=== PATIENT | male | born 1980 | race Caucasian/White ===

== ENCOUNTER 2018-07-12 20:23 | Emergency (ER) | payer SELFPAY ==
[2018-07-12] MEDS ORDERED: PROPARACAINE HCL OPTH 15ML BTL OPTH ONE (20:28)
--- NOTE | 2018-07-12 20:41 | Emergency Department Record ---
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 he was able to get part of it out chief complaint: Eye pain, Eye redness, Foreign body Onset/Timin -: Days(s) Onset Description: Gradual Location: Right eye If Injury: Occurred while hammering/grinding Eye Symptoms: Blurry vision, Foreign body sensation, Itching, Pain, Redness Severity: Mild Severity scale (1-10): 4 If Pain, Quality: Aching Consistency: Constant Associated Symptoms: None Treatments Prior to Arrival: None - Related Data Visual acuity (L) = 20/: 20 Visual acuity (R) = 20/: 40 With correction: No Patient Tetanus UTD (within 5 yrs): Yes Home Medications Medication Instructions Recorded Confirmed Last Taken No Home Med [NO HOME MEDS] 07/12/18 07/12/18 Unknown Allergies Allergy/AdvReac Type Severity Reaction Status Date / Time No Known Drug Allergies Allergy Verified 07/12/18 20:31 Travel Screening - Travel/Exposure Within Last 30 Days Have you traveled within the last 30 days?: No - Travel Symptoms Symptom Screening: None Review of Systems Reviewed: No additional complaints except as noted below Constitutional: Reports: As per HPI. Denies: Chills, Fever, Malaise, Night sweats, Weakness, Weight change Eyes: Reports: As per HPI. Denies: Eye discharge, Eye pain, Photophobia, Vision change ENT: Reports: As per HPI. Denies: Congestion, Dental pain, Ear pain, Epistaxis , Hearing loss, Throat pain Respiratory: Reports: As per HPI. Denies: Cough, Dyspnea, Hemoptysis, Stridor, Wheezes Cardiovascular: Reports: As per HPI. Denies: Arrhythmia, Chest pain, Dyspnea on exertion, Edema, Murmurs, Orthopnea, Palpitations, Paroxysmal nocturnal dyspnea, Rheumatic Fever, Syncope Endocrine: Reports: As per HPI. Denies: Fatigue, Heat or cold intolerance, Polydipsia, Polyuria Gastrointestinal: Reports: As per HPI. Denies: Abdominal pain, Constipation, Diarrhea, Hematemesis, Hematochezia, Melena, Nausea, Vomiting Genitourinary: Reports: As per HPI. Denies: Dysuria, Frequency, Hematuria, Incontinence, Retention, Testicular pain, Testicular mass, Urgency Musculoskeletal: Reports: As per HPI. Denies: Arthralgia, Back pain, Gout, Joint swelling, Myalgia, Neck pain Skin: Reports: As per HPI. Denies: Bruising, Change in color, Change in hair/ nails, Lesions, Pruritus, Rash Neurological: Reports: As per HPI. Denies: Abnormal gait, Confusion, Headache, Numbness, Paresthesias, Seizure, Tingling, Tremors, Vertigo, Weakness Psychiatric: Reports: As per HPI. Denies: Anxiety, Auditory hallucinations, Depression, Homicidal thoughts, Suicidal thoughts, Visual hallucinations Hematological/Lymphatic: Reports: As per HPI. Denies: Anemia, Blood Clots, Easy bleeding, Easy bruising, Swollen glands Past Medical History - SOCIAL HISTORY Smoking Status: Current every day smoker Alcohol Use: None Drug Use: None - RESPIRATORY Hx Respiratory Disorders: No - CARDIOVASCULAR Hx Cardio Disorders: No - NEURO Hx Neuro Disorders: No - GI Hx GI Disorders: No - Hx Genitourinary Disorders: No - ENDOCRINE Hx Endocrine Disorders: No - MUSCULOSKELETAL Hx Musculoskeletal Disorders: No - PSYCH Hx Psych Problems: No - HEMATOLOGY/ONCOLOGY Hx Hematology/Oncology Disorders: No Family Medical History Any Significant Family History?: No Physical Exam - General General Appearance: Alert, Oriented x3, Cooperative, Mild distress - Head Head exam: Normal inspection - Eye Eye exam: Normal appearance, PERRL, Conjunctival injection, EOMI Pupils: Normal accommodation With correction: No Image of Eyes: 1 - fb. removed w needle. tiny rust ring remains. corneal abrasion remains - ENT ENT exam: Normal exam, Mucous membranes moist, Normal external ear exam, Normal orophraynx Ear exam: Normal external inspection. negative: External canal tenderness Nasal Exam: Normal inspection. negative: Discharge, Sinus tenderness Mouth exam: Normal external inspection, Tongue normal Teeth exam: Normal inspection. negative: Dental caries Throat exam: Normal inspection. negative: Tonsillar erythema, Tonsillar exudate - Neck Neck exam: Normal inspection, Full ROM. negative: Tenderness - Respiratory Respiratory exam: Normal lung sounds bilaterally. negative: Respiratory distress - Cardiovascular Cardiovascular Exam: Regular rate, Normal rhythm, Normal heart sounds - GI/Abdominal GI/Abdominal exam: Soft, Normal bowel sounds. negative: Tenderness - Rectal Rectal exam: Deferred - exam: Deferred - Extremities Extremities exam: Normal inspection, Full ROM, Normal capillary refill. negative: Tenderness - Back Back exam: Reports: Normal inspection, Full ROM. Denies: Muscle spasm, Rash noted, Tenderness - Neurological Neurological exam: Alert, CN II-XII intact, Normal gait, Oriented X3 - Psychiatric Psychiatric exam: Normal affect, Normal mood - Skin Skin exam: Dry, Intact, Normal color, Warm Course Vital Signs 07/12/18 20:29 Temperature 98.1 F Pulse Rate [ 68 Pulse Ox Probe] Respiratory 20 Rate Blood Pressure 125/99 [Left Arm] Pulse Ox 99 - Reevaluation(s) Reevaluation #1: 07/12/18 21:01 eye anesth. fb removed w needle, residual tiny rust ring and corneal abrasion Disposition Disposition: Discharge Clinical Impression: Foreign body, eye Qualifiers: Encounter type: initial encounter Laterality: right Qualified Code(s): T15.91XA - Foreign body on external eye, part unspecified, right eye, initial encounter Corneal abrasion Qualifiers: Encounter type: initial encounter Laterality: right Qualified Code(s): S05.01XA - Injury of conjunctiva and corneal abrasion without foreign body, right eye, initial encounter Disposition: Home, Self-Care Condition: (1) Good Instructions: Eye Foreign Body (ED) Additional Instructions: follow up with opthamologist tomorrow. apply drops 4 times a day for 5 days. return sooner if worse Forms: Patient Portal Access Quality - Quality Measures Quality Measures: N/A - Blood Pressure Screening Does Patient Have Any of the Following: No Blood Pressure Classification: Hypertensive Reading Systolic Measurement: 125 Diastolic Measurement: 99 Screening for High Blood Pressure: < Pre-Hypertensive BP, F/U Documented > [ G8950] Pre-Hypertensive Follow-up Interventions: Follow-up with rescreen every year.
[2018-07-12] MEDS ORDERED: GENTAMICIN SULFATE 0.3% OPTH 5 ML BTL OPTH ONE (20:58)
== END 2018-07-12 21:29 | disposition home or self-care (01) ==
LOC: ER 20:23
DX: T15.01XA Foreign body in cornea, right eye, initial encounter (principal); T14.90XA Injury, unspecified, initial encounter; T54.91XA Toxic effect of unspecified corrosive substance, accidental (unintentional), initial encounter; Y92.9 Unspecified place or not applicable; F17.210 Nicotine dependence, cigarettes, uncomplicated
CPT/HCPCS: 99283

== ENCOUNTER 2018-08-13 10:09 | Emergency (ER) | payer SELFPAY ==
[2018-08-13] MEDS ORDERED: PROPARACAINE HCL OPTH 15ML BTL OPTH ONE ×2 (10:22→10:24)
--- NOTE | 2018-08-13 10:35 | Emergency Department Record ---
History of Present Illness - General Chief complaint: Eye Problem Stated complaint: FOREIGN OBJECT LFT EYE Time Seen by Provider: 08/13/18 10:22 Source: Patient Mode of Arrival: Ambulatory Limitations: No limitations - History of Present Illness Initial comments: 37 yo male presents with a concern about FB in the left eye. He thinks it may have occurred on . His left eye became irritated on Wednesday. He welds using protective glasses. His family member noted a small spot just below the pupil. No glasses or contacts. MD chief complaint: Eye pain, Eye redness, Foreign body Onset/Timin -: Days(s) Onset Description: Sudden, Unknown Location: Left eye Place: Work If Injury: Other Eye Symptoms: Blurry vision Severity: Moderate Severity scale (1-10): 8 If Pain, Quality: Sharp Consistency: Constant Context: Other Associated Symptoms: None Treatments Prior to Arrival: OTC eye drops - Related Data Hx Tetanus Toxoid Vaccination: Yes Year of Tetanus Vaccination: 2012 Allergies Allergy/AdvReac Type Severity Reaction Status Date / Time No Known Drug Allergies Allergy Verified 07/12/18 20:31 Travel Screening - Travel/Exposure Within Last 30 Days Have you traveled within the last 30 days?: No Review of Systems Constitutional: Denies: Chills, Fever Eyes: Reports: Eye pain, Photophobia, Vision change. Denies: Eye discharge ENT: Denies: Congestion, Throat pain Respiratory: Denies: Cough Cardiovascular: Denies: Chest pain Endocrine: Denies: Fatigue Gastrointestinal: Denies: Abdominal pain, Diarrhea, Nausea, Vomiting Genitourinary: Denies: Dysuria Musculoskeletal: Denies: Myalgia Skin: Denies: Bruising, Change in color, Rash Neurological: Denies: Headache Psychiatric: Denies: Anxiety Hematological/Lymphatic: Denies: Easy bleeding, Easy bruising Past Medical History - SOCIAL HISTORY Smoking Status: Current every day smoker Alcohol Use: None Drug Use: None - RESPIRATORY Hx Respiratory Disorders: No - CARDIOVASCULAR Hx Cardio Disorders: No - NEURO Hx Neuro Disorders: No - GI Hx GI Disorders: No - Hx Genitourinary Disorders: No - ENDOCRINE Hx Endocrine Disorders: No - MUSCULOSKELETAL Hx Musculoskeletal Disorders: No - PSYCH Hx Psych Problems: No - HEMATOLOGY/ONCOLOGY Hx Hematology/Oncology Disorders: No Family Medical History Any Significant Family History?: No Physical Exam - General General Appearance: Alert, Oriented x3, Cooperative, No acute distress Limitations: No limitations - Head Head exam: Atraumatic, Normal inspection - Eye Eye exam: PERRL, EOMI. negative: Normal appearance, Conjunctival injection, Periorbital swelling, Periorbital tenderness Pupils: Normal accommodation. negative: Irregular, Unequal Image of Eyes: 1 - metallic FB with rust - ENT ENT exam: Normal exam Ear exam: Normal external inspection Nasal Exam: Normal inspection Mouth exam: Normal external inspection - Neck Neck exam: Normal inspection - Rectal Rectal exam: Deferred - exam: Deferred - Neurological Neurological exam: Alert, Oriented X3 - Psychiatric Psychiatric exam: negative: Agitated, Anxious - Skin Skin exam: negative: Cyanosis Type of lesion: negative: abrasion, Abscess Course Vital Signs 08/13/18 10:13 Temperature 98.0 F Pulse Rate 70 Respiratory 20 Rate Blood Pressure 130/91 Pulse Ox 100 - Reevaluation(s) Reevaluation #1: 08/13/18 10:40 Slit Lamp examination performed Alcaine placed 2 drops Fluorescent Stain applied A single central metalic/rust FB noted Gentle plastic curette use to dislodge a small fragment but most remained adherent with rust The case was discussed with Dr Palomares He will see the patient at 12:30 at his office in [place] for evaluation The patient assured me he will be on time to his office today for examination Disposition Disposition: Discharge Clinical Impression: Corneal foreign body with residual material Disposition: Home, Self-Care Condition: (1) Good Instructions: Eye Foreign Body (ED) Additional Instructions: Without fail see Dr Palomares in his office at 12:30 today His address is [address] [place] [address] Do not miss this appointment Referrals: KAMI PALOMARES [MEDICAL DOCTOR] - Forms: Patient Portal Access Time of Disposition: 10:41 Quality - Quality Measures Quality Measures: N/A - Blood Pressure Screening Does Patient Have Any of the Following: No Blood Pressure Classification: Hypertensive Reading Systolic Measurement: 130 Diastolic Measurement: 91 Screening for High Blood Pressure: < Pre-Hypertensive BP, F/U Documented > [ G8950] Pre-Hypertensive Follow-up Interventions: Referral to alternative/primary care provider.
== END 2018-08-13 11:00 | disposition home or self-care (01) ==
LOC: ER 10:09
DX: T15.02XA Foreign body in cornea, left eye, initial encounter (principal); X58.XXXA Exposure to other specified factors, initial encounter; F17.210 Nicotine dependence, cigarettes, uncomplicated; Y99.0 Civilian activity done for income or pay
CPT/HCPCS: 65222; 99283

== ENCOUNTER 2018-08-17 02:33 | Emergency (ER) | payer SELFPAY ==
--- NOTE | 2018-08-17 02:55 | Emergency Department Record ---
History of Present Illness - General Chief complaint: Eye Problem Stated complaint: FB EYE Time Seen by Provider: 08/17/18 02:46 Source: Patient Mode of Arrival: Ambulatory Limitations: No limitations - History of Present Illness Initial comments: 37 yo male presents to ED for evaluation of a FB sensation to the left eye. Patient reports that he did get some metal in the left eye that was removed by a sita performed by Dr. Zavala 4 days ago. Patient reports that he woke up this morning with sharp pain to the left lateral lower eye region. Patient denies new injury, has been taking his antibiotic drops as directed. Patient reports associated photophobia symptoms, denies drainage from the eye. MD chief complaint: Eye pain, Eye redness Onset/Timin -: Minutes(s) Onset Description: Awoke with symptoms Location: Left eye Place: Home Eye Symptoms: Burning, Photophobia Severity scale (1-10): 10 If Pain, Quality: Burning, Sharp, Stabbing Consistency: Constant Context: Recent eye procedure Associated Symptoms: None Treatments Prior to Arrival: Other - Related Data Hx Tetanus Toxoid Vaccination: Yes Year of Tetanus Vaccination: 2012 Patient Tetanus UTD (within 5 yrs): Yes Allergies Allergy/AdvReac Type Severity Reaction Status Date / Time No Known Drug Allergies Allergy Verified 07/12/18 20:31 Travel Screening - Travel/Exposure Within Last 30 Days Have you traveled within the last 30 days?: No - Travel Symptoms Symptom Screening: None Review of Systems Constitutional: Denies: Chills, Fever, Malaise, Night sweats Eyes: Reports: Eye pain, Photophobia. Denies: Eye discharge ENT: Denies: Congestion, Ear pain, Epistaxis Respiratory: Denies: Cough, Dyspnea Cardiovascular: Denies: Chest pain, Dyspnea on exertion Endocrine: Denies: Fatigue, Heat or cold intolerance Gastrointestinal: Denies: Abdominal pain, Nausea, Vomiting Genitourinary: Denies: Incontinence, Retention Musculoskeletal: Denies: Arthralgia, Back pain, Gout, Joint swelling Skin: Denies: Bruising, Change in color Neurological: Denies: Abnormal gait, Confusion, Headache, Seizure Psychiatric: Denies: Anxiety Hematological/Lymphatic: Denies: Anemia, Blood Clots Past Medical History - SOCIAL HISTORY Smoking Status: Current every day smoker - RESPIRATORY Hx Respiratory Disorders: No - CARDIOVASCULAR Hx Cardio Disorders: No - NEURO Hx Neuro Disorders: No - GI Hx GI Disorders: No - Hx Genitourinary Disorders: No - ENDOCRINE Hx Endocrine Disorders: No - MUSCULOSKELETAL Hx Musculoskeletal Disorders: No - PSYCH Hx Psych Problems: No - HEMATOLOGY/ONCOLOGY Hx Hematology/Oncology Disorders: No Family Medical History Any Significant Family History?: Yes Hx Cancer: Grandparents Physical Exam - General General Appearance: Alert, Oriented x3, Cooperative, Mild distress Limitations: No limitations - Head Head exam: Atraumatic, Normocephalic, Normal inspection Head exam detail: negative: Abrasion, Contusion, Lamb's sign, General tenderness, Hematoma, Laceration - Eye Eye exam: Conjunctival injection (Left eye. Small pinpoint abrasion at the 5 o' clock position of the left cornea, negative Seidels, no FB present of upper/ lower lid eversion.). negative: Periorbital swelling, Periorbital tenderness, Scleral icterus - ENT Ear exam: negative: Auricular hematoma, Auricular trauma Nasal Exam: negative: Active bleeding, Discharge, Dried blood, Foreign body Mouth exam: negative: Drooling, Laceration, Tongue elevation - Neck Neck exam: Normal inspection. negative: Meningismus, Tenderness - Respiratory Respiratory exam: Normal lung sounds bilaterally. negative: Rales, Respiratory distress, Rhonchi, Stridor - Cardiovascular Cardiovascular Exam: Regular rate, Normal rhythm, Normal heart sounds - GI/Abdominal GI/Abdominal exam: Soft. negative: Rebound, Rigid, Tenderness - Rectal Rectal exam: Deferred - exam: Deferred - Extremities Extremities exam: Normal inspection. negative: Calf tenderness, Pedal edema, Tenderness - Back Back exam: Denies: CVA tenderness (R), CVA tenderness (L) - Neurological Neurological exam: Alert, Normal gait, Oriented X3 - Psychiatric Psychiatric exam: Normal affect, Normal mood - Skin Skin exam: Normal color. negative: Abrasion Type of lesion: negative: abrasion Course Vital Signs 08/17/18 02:40 Temperature 97.6 F Pulse Rate [ 70 Pulse Ox Probe] Respiratory 20 Rate Blood Pressure 123/75 [Left Arm] Pulse Ox 100 - Reevaluation(s) Reevaluation #1: 08/17/18 03:00 Following alcaine drops, small pinpoint abrasion to the 5 o'clock position. No FB present No FB present on upper/lower lid eversion Negative Stephanie's EOMI NO cells/flare present on examination to suggest traumatic iritis. VA 20/40 right 20/50 left Recommended patient call Dr. Zavala for an appointment this morning. Disposition Disposition: Discharge Clinical Impression: Abrasion, corneal Qualifiers: Encounter type: subsequent encounter Laterality: left Qualified Code(s): S05.02XD - Injury of conjunctiva and corneal abrasion without foreign body, left eye, subsequent encounter Disposition: Home, Self-Care Condition: (2) Stable Instructions: Corneal Abrasion (ED) Additional Instructions: Return to ED if your symptoms worsen or if you have any concerns. Continue antibiotic eye drops as directed. Follow-up with Dr. Zavala later this morning. Time of Disposition: 03:02 Quality - Quality Measures Quality Measures: N/A - Blood Pressure Screening Does Patient Have Any of the Following: No Blood Pressure Classification: Pre-Hypertensive BP Reading Systolic Measurement: 123 Diastolic Measurement: 75 Screening for High Blood Pressure: < Pre-Hypertensive BP, F/U Documented > [ G8950] Pre-Hypertensive Follow-up Interventions: Referral to alternative/primary care provider.
[2018-08-17] MEDS: PROPARACAINE HCL OPTH 15ML BTL OPTH ONE (03:00)
== END 2018-08-17 03:13 | disposition home or self-care (01) ==
LOC: ER 02:33
DX: S05.02XA Injury of conjunctiva and corneal abrasion without foreign body, left eye, initial encounter (principal); H53.149 Visual discomfort, unspecified; X58.XXXA Exposure to other specified factors, initial encounter; F17.210 Nicotine dependence, cigarettes, uncomplicated
CPT/HCPCS: 99282

== ENCOUNTER 2019-02-10 17:25 | Emergency (ER) | payer SELFPAY ==
[2019-02-10] MEDS ORDERED: 0.9 % SODIUM CHLORIDE 1,000 ML BAG IV ONE (17:41)
--- NOTE | 2019-02-10 17:45 | Emergency Department Record ---
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 MD Complaint: Cough Onset/Timin -: Week(s) Severity: Moderate Severity scale (1-10): 5 Consistency: Constant - Related Data Previous Rx's Medication Instructions Recorded Azithromycin 250 mg PO DAILY #6 tablet 02/10/19 Guaifenesin/Dextromethorphan 10 ml PO Q4HR #300 liquid 02/10/19 [Robitussin Cough-Chest Dm Liq] Allergies Allergy/AdvReac Type Severity Reaction Status Date / Time No Known Drug Allergies Allergy Verified 07/12/18 20:31 Travel Screening - Travel/Exposure Within Last 30 Days Have you traveled within the last 30 days?: No Review of Systems Reviewed: No additional complaints except as noted below Constitutional: Reports: As per HPI, Chills, Fever, Malaise. Denies: Night sweats, Weakness, Weight change Eyes: Reports: As per HPI. Denies: Eye discharge, Eye pain, Photophobia, Vision change ENT: Reports: As per HPI, Congestion, Throat pain. Denies: Dental pain, Ear pain, Epistaxis, Hearing loss Respiratory: Reports: As per HPI, Cough. Denies: Dyspnea, Hemoptysis, Stridor, Wheezes Cardiovascular: Reports: As per HPI. Denies: Arrhythmia, Chest pain, Dyspnea on exertion, Edema, Murmurs, Orthopnea, Palpitations, Paroxysmal nocturnal dyspnea, Rheumatic Fever, Syncope Endocrine: Reports: As per HPI. Denies: Fatigue, Heat or cold intolerance, Polydipsia, Polyuria Gastrointestinal: Reports: As per HPI. Denies: Abdominal pain, Constipation, Diarrhea, Hematemesis, Hematochezia, Melena, Nausea, Vomiting Genitourinary: Reports: As per HPI. Denies: Dysuria, Frequency, Hematuria, Incontinence, Retention, Testicular pain, Testicular mass, Urgency Musculoskeletal: Reports: As per HPI. Denies: Arthralgia, Back pain, Gout, Joint swelling, Myalgia, Neck pain Skin: Reports: As per HPI. Denies: Bruising, Change in color, Change in hair/ nails, Lesions, Pruritus, Rash Neurological: Reports: As per HPI. Denies: Abnormal gait, Confusion, Headache, Numbness, Paresthesias, Seizure, Tingling, Tremors, Vertigo, Weakness Psychiatric: Reports: As per HPI. Denies: Anxiety, Auditory hallucinations, Depression, Homicidal thoughts, Suicidal thoughts, Visual hallucinations Hematological/Lymphatic: Reports: As per HPI. Denies: Anemia, Blood Clots, Easy bleeding, Easy bruising, Swollen glands Past Medical History - SOCIAL HISTORY Smoking Status: Current every day smoker - RESPIRATORY Hx Respiratory Disorders: No - CARDIOVASCULAR Hx Cardio Disorders: No - NEURO Hx Neuro Disorders: No - GI Hx GI Disorders: No - Hx Genitourinary Disorders: No - ENDOCRINE Hx Endocrine Disorders: No - MUSCULOSKELETAL Hx Musculoskeletal Disorders: No - PSYCH Hx Psych Problems: No - HEMATOLOGY/ONCOLOGY Hx Hematology/Oncology Disorders: No Family Medical History Any Significant Family History?: Yes Hx Cancer: Grandparents Physical Exam - General General Appearance: Alert, Oriented x3, Cooperative, No acute distress - Head Head exam: Normal inspection - Eye Eye exam: Normal appearance, PERRL Pupils: Normal accommodation - ENT ENT exam: Normal exam, Mucous membranes moist, Normal external ear exam, Normal orophraynx, TM's normal bilaterally Ear exam: Normal external inspection. negative: External canal tenderness Nasal Exam: Normal inspection. negative: Discharge, Sinus tenderness Mouth exam: Normal external inspection, Tongue normal Teeth exam: Normal inspection. negative: Dental caries Throat exam: Normal inspection. negative: Tonsillar erythema, Tonsillar exudate - Neck Neck exam: Normal inspection, Full ROM. negative: Tenderness - Respiratory Respiratory exam: Normal lung sounds bilaterally, Wheezes. negative: Respiratory distress - Cardiovascular Cardiovascular Exam: Regular rate, Normal rhythm, Normal heart sounds - GI/Abdominal GI/Abdominal exam: Soft, Normal bowel sounds. negative: Tenderness - Rectal Rectal exam: Deferred - exam: Deferred - Extremities Extremities exam: Normal inspection, Full ROM, Normal capillary refill. negative: Tenderness - Back Back exam: Reports: Normal inspection, Full ROM. Denies: Muscle spasm, Rash noted, Tenderness - Neurological Neurological exam: Alert, Normal gait, Oriented X3, Reflexes normal - Psychiatric Psychiatric exam: Normal affect, Normal mood - Skin Skin exam: Dry, Intact, Normal color, Warm Course Vital Signs 02/10/19 17:29 Temperature 98.6 F Pulse Rate 92 H Respiratory 18 Rate Blood Pressure 117/76 Pulse Ox 99 - Reevaluation(s) Reevaluation #1: 04/patient said he didn't want a chest xray because of cost10/19 17:45 Medical Decision Making - Lab Data Result diagrams: 02/10/19 17:45 02/10/19 17:45 Disposition Clinical Impression: Bronchitis Disposition: Home, Self-Care Condition: (1) Good Instructions: Acute Bronchitis (ED) Additional Instructions: fluids and rest Prescriptions: Guaifenesin/Dextromethorphan [Robitussin Cough-Chest Dm Liq] 10 ml PO Q4HR #300 liquid Azithromycin 250 mg PO DAILY #6 tablet Forms: Patient Portal Access Time of Disposition: 18:16 Quality - Quality Measures Quality Measures: N/A - Blood Pressure Screening Does Patient Have Any of the Following: No Blood Pressure Classification: Normal BP Reading Systolic Measurement: 117 Diastolic Measurement: 76 Screening for High Blood Pressure: < Normal BP, F/U Not Required > [G8783]
[2019-02-10 18:04] LABS: BASO % 0.4 % (0-6); EOS % 1.8 % (0-6); GRAN % 76.1 % (47-80); HEMATOCRIT 46.8 % (42.0-52.0); HEMOGLOBIN 15.8 gm/dl (14.0-18.0); LYMPH % 13.7 % (16-45); MEAN CELL VOLUME 86.2 fl (81-97); MEAN CORPUSCULAR HEMOGLOBIN 29.1 pg (27-33); MEAN CORPUSCULAR HGB CONC 33.8 g/dl (32-36); MEAN PLATELET VOLUME 11.3 fl (7.4-10.4); PLATELET COUNT 208 K/uL (130-400); RED BLOOD COUNT 5.43 M/uL (4.40-5.70); RED CELL DISTRIBUTION WIDTH 13.8 % (11.5-14.5); WHITE BLOOD COUNT W/O DIFF 9.3 K/uL (4.2-12.2)
[2019-02-10] MEDS ORDERED: AZITHROMYCIN 500 MG TABLET PO ONE (18:11)
[2019-02-10 18:15] LABS: STREP A SCREEN NEGATIVE (NEGATIVE)
[2019-02-10 18:17] LABS: BLOOD UREA NITROGEN 15 mg/dL (6-20)
[2019-02-10 18:18] LABS: EST GLOMERULAR FILTRATION RATE > 60 mL/min
[2019-02-10 18:20] LABS: GLUCOSE,RANDOM 88 mg/dL (74-109)
[2019-02-10 18:21] LABS: INFLUENZA A NEGATIVE (NEGATIVE); INFLUENZA B NEGATIVE (NEGATIVE)
== END 2019-02-10 18:41 | disposition home or self-care (01) ==
LOC: ER 17:25
DX: J20.9 Acute bronchitis, unspecified (principal); R11.10 Vomiting, unspecified; R19.7 Diarrhea, unspecified; F17.210 Nicotine dependence, cigarettes, uncomplicated
CPT/HCPCS: 80048; 85025; 87400; 87880; 96360; 99284

== ENCOUNTER 2019-02-22 02:45 | Emergency (ER) | payer SELFPAY ==
[2019-02-22] MEDS ORDERED: ASPIRIN 81 MG CHEWABLE TABLET PO ONE (03:00)
[2019-02-22] MEDS ORDERED: MAGNESIUM HYDROXIDE/AL HYDROX 30 ML, LIDOCAINE VISC 2% 15ML 15 ML PO ONE ×2 (03:03)
[2019-02-22 03:19] LABS: BASO % 0.5 % (0-6); EOS % 2.1 % (0-6); GRAN % 68.1 % (47-80); HEMATOCRIT 43.9 % (42.0-52.0); HEMOGLOBIN 14.7 gm/dl (14.0-18.0); MEAN CELL VOLUME 85.9 fl (81-97); MEAN CORPUSCULAR HEMOGLOBIN 28.8 pg (27-33); MEAN CORPUSCULAR HGB CONC 33.5 g/dl (32-36); MEAN PLATELET VOLUME 11.2 fl (7.4-10.4); MONO % 8.3 % (0-9); PLATELET COUNT 234 K/uL (130-400); RED BLOOD COUNT 5.11 M/uL (4.40-5.70); RED CELL DISTRIBUTION WIDTH 13.8 % (11.5-14.5); WHITE BLOOD COUNT W/O DIFF 14.5 K/uL (4.2-12.2)
--- NOTE | 2019-02-22 03:26 | Emergency Department Record ---
History of Present Illness - General Chief Complaint: Chest Pain Stated Complaint: CHEST PAIN Time Seen by Provider: 02/22/19 02:55 Source: Patient Mode of Arrival: Ambulatory Limitations: No limitations - History of Present Illness Initial Comments: pt c/o sharp stabbing cp and points to his epigastrum. he has a recent hx of bronchitis. he has no other symptoms except a clear cough. no fam hx of cad Onset/Timin -: Hour(s) Onset: During rest Pain Location: Right chest, Epigastric Severity scale (1-10): 8 Quality: Sharp Consistency: Constant, Getting worse Improves With: Nothing Worsens With: Palpation Treatments Prior to Arrival: None - Related Data Allergies Allergy/AdvReac Type Severity Reaction Status Date / Time No Known Drug Allergies Allergy Verified 07/12/18 20:31 Travel Screening - Travel/Exposure Within Last 30 Days Have you traveled within the last 30 days?: No Review of Systems Reviewed: No additional complaints except as noted below Constitutional: Reports: As per HPI. Denies: Chills, Fever, Malaise, Night sweats, Weakness, Weight change Eyes: Reports: As per HPI. Denies: Eye discharge, Eye pain, Photophobia, Vision change ENT: Reports: As per HPI. Denies: Congestion, Dental pain, Ear pain, Epistaxis , Hearing loss, Throat pain Respiratory: Reports: As per HPI. Denies: Cough, Dyspnea, Hemoptysis, Stridor, Wheezes Cardiovascular: Reports: As per HPI. Denies: Arrhythmia, Chest pain, Dyspnea on exertion, Edema, Murmurs, Orthopnea, Palpitations, Paroxysmal nocturnal dyspnea, Rheumatic Fever, Syncope Endocrine: Reports: As per HPI. Denies: Fatigue, Heat or cold intolerance, Polydipsia, Polyuria Gastrointestinal: Reports: As per HPI, Abdominal pain. Denies: Constipation, Diarrhea, Hematemesis, Hematochezia, Melena, Nausea, Vomiting Genitourinary: Reports: As per HPI. Denies: Dysuria, Frequency, Hematuria, Incontinence, Retention, Testicular pain, Testicular mass, Urgency Musculoskeletal: Reports: As per HPI. Denies: Arthralgia, Back pain, Gout, Joint swelling, Myalgia, Neck pain Skin: Reports: As per HPI. Denies: Bruising, Change in color, Change in hair/ nails, Lesions, Pruritus, Rash Neurological: Reports: As per HPI. Denies: Abnormal gait, Confusion, Headache, Numbness, Paresthesias, Seizure, Tingling, Tremors, Vertigo, Weakness Psychiatric: Reports: As per HPI. Denies: Anxiety, Auditory hallucinations, Depression, Homicidal thoughts, Suicidal thoughts, Visual hallucinations Hematological/Lymphatic: Reports: As per HPI. Denies: Anemia, Blood Clots, Easy bleeding, Easy bruising, Swollen glands Past Medical History - SOCIAL HISTORY Smoking Status: Current every day smoker Alcohol Use: None Drug Use: None - RESPIRATORY Hx Respiratory Disorders: No - CARDIOVASCULAR Hx Cardio Disorders: No - NEURO Hx Neuro Disorders: No - GI Hx GI Disorders: No - Hx Genitourinary Disorders: No - ENDOCRINE Hx Endocrine Disorders: No - MUSCULOSKELETAL Hx Musculoskeletal Disorders: No - PSYCH Hx Psych Problems: No - HEMATOLOGY/ONCOLOGY Hx Hematology/Oncology Disorders: No Family Medical History Any Significant Family History?: Yes Hx Cancer: Grandparents Physical Exam - General General Appearance: Alert, Oriented x3, Cooperative, Mild distress - Head Head exam: Normal inspection - Eye Eye exam: Normal appearance, PERRL, EOMI Pupils: Normal accommodation - ENT ENT exam: Normal exam, Mucous membranes moist, Normal external ear exam, Normal orophraynx Ear exam: Normal external inspection. negative: External canal tenderness Nasal Exam: Normal inspection. negative: Discharge, Sinus tenderness Mouth exam: Normal external inspection, Tongue normal Teeth exam: Normal inspection. negative: Dental caries Throat exam: Normal inspection. negative: Tonsillar erythema, Tonsillar exudate - Neck Neck exam: Normal inspection, Full ROM. negative: Tenderness - Respiratory Respiratory exam: Normal lung sounds bilaterally. negative: Respiratory distress - Cardiovascular Cardiovascular Exam: Regular rate, Normal rhythm, Normal heart sounds - GI/Abdominal GI/Abdominal exam: Soft, Normal bowel sounds, Tenderness (in the epigatrum) - Rectal Rectal exam: Deferred - exam: Deferred - Extremities Extremities exam: Normal inspection, Full ROM, Normal capillary refill. negative: Tenderness - Back Back exam: Reports: Normal inspection, Full ROM. Denies: Muscle spasm, Rash noted, Tenderness - Neurological Neurological exam: Alert, CN II-XII intact, Normal gait, Oriented X3 - Psychiatric Psychiatric exam: Normal affect, Normal mood - Skin Skin exam: Dry, Intact, Normal color, Warm Course Vital Signs 02/22/19 02:48 Pulse Rate [ [employer] ] Respiratory 24 Rate Blood Pressure 126/98 [Left Arm] Pulse Ox 98 - Reevaluation(s) Reevaluation #1: 02/22/19 04:16 pt feels better. pts pain started 6 hrs ago and is epigastric, not cp Medical Decision Making - Lab Data Result diagrams: 02/22/19 03:10 02/22/19 03:10 Lab Results 02/22/19 02/22/19 Range/Units 03:03 03:10 WBC 14.5 H (4.2-12.2) K/uL RBC 5.11 (4.40-5.70) M/uL Hgb 14.7 (14.0-18.0) gm/dl Hct 43.9 (42.0-52.0) % MCV 85.9 (81-97) fl MCH 28.8 (27-33) pg MCHC 33.5 (32-36) g/dl RDW 13.8 (11.5-14.5) % Plt Count 234 (130-400) K/uL MPV 11.2 H (7.4-10.4) fl Gran % 68.1 (47-80) % Lymphocytes % 21.0 (16-45) % Monocytes % 8.3 (0-9) % Eosinophils % 2.1 (0-6) % Basophils % 0.5 (0-6) % Lipase Cancelled Disposition Disposition: Discharge Clinical Impression: Epigastric abdominal pain Disposition: Home, Self-Care Condition: (1) Good Instructions: Abdominal Pain (ED) Additional Instructions: follow up with family doctor. return sooner if worse. Forms: Patient Portal Access, Return to Work/School Quality - Quality Measures Quality Measures: N/A - Blood Pressure Screening Does Patient Have Any of the Following: No Blood Pressure Classification: Hypertensive Reading Systolic Measurement: 126 Diastolic Measurement: 98 Screening for High Blood Pressure: < Normal BP, F/U Not Required > [G8783]
[2019-02-22 03:31] LABS: BLOOD UREA NITROGEN 18 mg/dL (6-20); CREATININE 0.8 mg/dL (0.7-1.2); EST GLOMERULAR FILTRATION RATE > 60 mL/min
[2019-02-22 03:32] LABS: LIPASE 25 U/L (13-60); TOTAL PROTEIN 6.9 g/dL (6.6-8.7)
[2019-02-22 03:34] LABS: GLUCOSE,RANDOM 108 mg/dL (74-109)
[2019-02-22 03:37] LABS: ALB/GLOB RATIO 1.4 (1.1-1.8); ALKALINE PHOSPHATASE 102 U/L (40-129); ALT/SGPT 26 U/L (<41); AST/SGOT 25 U/L (10.0-50.0); CREATINE PHOSPHOKINASE 207 U/L (39-308)
[2019-02-22 03:39] LABS: CKMB 5.8 ng/mL (<6.73)
[2019-02-22] MEDS ORDERED: KETOROLAC 30 MG/ML VIAL IVP ONE (03:46)
--- NOTE | 2019-02-24 17:04 | RADIOLOGY REPORT ---
DATE: 02/22/2019 Chest 2 views dated 02/22/2019 at 0322 hours. CLINICAL HISTORY: Lower chest epigastric pain. TECHNIQUE: Upright PA and lateral views of the chest. COMPARISON: None. FINDINGS: The cardiomediastinal silhouette is normal in size and configuration. The pulmonary vasculature is nondilated. The lungs and pleural spaces are clear. The osseous structures are intact. IMPRESSION: No radiographic evidence of acute cardiopulmonary disease. MTDD
== END 2019-02-22 04:29 | disposition home or self-care (01) ==
LOC: ER 02:45
DX: R10.13 Epigastric pain (principal); R07.89 Other chest pain; F17.210 Nicotine dependence, cigarettes, uncomplicated
CPT/HCPCS: 71046; 80053; 82550; 82553; 83690; 84484; 85025; 85379; 93005; 93010; 96374; 99284; J1885

== ENCOUNTER 2019-11-03 15:39 | Emergency (ER) | payer SELFPAY ==
--- NOTE | 2019-11-03 15:55 | Emergency Department Record ---
History of Present Illness - General Chief complaint: Abscess Stated complaint: SORE ON FACE Time Seen by Provider: 11/03/19 15:54 Source: Patient, Family Mode of Arrival: Ambulatory Limitations: No limitations - History of Present Illness Initial comments: 38 yo male presents with a concern about a sore on his face. On November 01 he noticed the area in the mid forehead. He squeezed it and saw some fluid. The area remains slightly raised. No pus currently. No eye pain. No fever. No ear pain. No vision changes. No other areas similar on his body. MD complaint: Abscess/boil -: Days(s) (3) Hx Tetanus Toxoid Vaccination: Yes Year of Tetanus Vaccination: 2012 Location: Face Severity: Mild Quality: Aching Consistency: Constant Improves with: None Worsens with: None Context: Other Associated symptoms: Denies other symptoms Treatments Prior to Arrival: None - Related Data Previous Rx's Medication Instructions Recorded Clindamycin HCl 300 mg PO QID #28 capsule 11/03/19 Allergies Allergy/AdvReac Type Severity Reaction Status Date / Time No Known Drug Allergies Allergy Verified 11/03/19 15:57 Review of Systems Constitutional: Denies: Chills, Fever, Malaise, Weakness Eyes: Denies: Eye discharge, Eye pain, Photophobia, Vision change ENT: Denies: Congestion, Throat pain Respiratory: Denies: Cough, Dyspnea Cardiovascular: Denies: Chest pain, Syncope Endocrine: Denies: Fatigue, Polydipsia, Polyuria Gastrointestinal: Denies: Abdominal pain, Diarrhea, Nausea, Vomiting Genitourinary: Denies: Dysuria, Frequency, Hematuria Musculoskeletal: Denies: Arthralgia, Back pain, Myalgia Skin: Reports: As per HPI, Change in color, Lesions Neurological: Denies: Headache, Numbness, Weakness Psychiatric: Denies: Anxiety Hematological/Lymphatic: Denies: Easy bleeding, Easy bruising Past Medical History - SOCIAL HISTORY Smoking Status: Current every day smoker Drug Use: None - RESPIRATORY Hx Respiratory Disorders: No - CARDIOVASCULAR Hx Cardio Disorders: No - NEURO Hx Neuro Disorders: No - GI Hx GI Disorders: No - Hx Genitourinary Disorders: No - ENDOCRINE Hx Endocrine Disorders: No - MUSCULOSKELETAL Hx Musculoskeletal Disorders: No - PSYCH Hx Psych Problems: No - HEMATOLOGY/ONCOLOGY Hx Hematology/Oncology Disorders: No Family Medical History Hx Cancer: Grandparents Physical Exam - General General Appearance: Alert, Oriented x3, Cooperative, No acute distress Limitations: No limitations - Head Head exam: Atraumatic, Normocephalic, Normal inspection Image of Face/Head: 1 - 1.5 cm erythema, slightly raised, non fluctuant, soft, slight scale on surface, no blisters - Eye Eye exam: Normal appearance, PERRL. negative: Conjunctival injection, Scleral icterus - ENT ENT exam: Mucous membranes moist, Normal orophraynx. negative: Mucous membranes dry Ear exam: Normal external inspection Nasal Exam: Normal inspection Mouth exam: Normal external inspection Teeth exam: Normal inspection Throat exam: Normal inspection. negative: Tonsillar erythema, Tonsillomegaly, Tonsillar exudate, R peritonsillar mass, L peritonsillar mass - Neck Neck exam: Normal inspection. negative: Lymphadenopathy, Tenderness - Extremities Extremities exam: Normal inspection - Neurological Neurological exam: Alert, CN II-XII intact, Oriented X3 - Psychiatric Psychiatric exam: Normal affect, Normal mood Course - Reevaluation(s) Reevaluation #1: 11/03/19 16:04 Bedside US was used to assess for fluid No fluid visualized to suggest abscess No immediate indication for I and D I pushed and no pus expressed either Most consistent with local cellulitis 11/03/19 16:11 I discussed returning in 24-48 hours if any swelling to assess if I and D would be indicated Disposition Disposition: Discharge Clinical Impression: Cellulitis Disposition: Home, Self-Care Condition: (1) Good Instructions: Cellulitis (ED) Additional Instructions: Take the antibiotic until gone Return if the area swells, spreads or new concerns Prescriptions: Clindamycin HCl 300 mg PO QID #28 capsule Forms: Patient Portal Access Time of Disposition: 16:12 Quality - Quality Measures Quality Measures: N/A - Blood Pressure Screening Does Patient Have Any of the Following: No Blood Pressure Classification: Hypertensive Reading Systolic Measurement: 130 Diastolic Measurement: 97 Screening for High Blood Pressure: < Pre-Hypertensive BP, F/U Documented > [G8950] Pre-Hypertensive Follow-up Interventions: Referral to alternative/primary care provider.
[2019-11-03] MEDS ORDERED: CLINDAMYCIN 150 MG CAP PO ONE (16:02)
== END 2019-11-03 16:28 | disposition home or self-care (01) ==
LOC: ER 15:39
DX: L03.211 Cellulitis of face (principal); F17.210 Nicotine dependence, cigarettes, uncomplicated
CPT/HCPCS: 99283

== ENCOUNTER 2019-11-12 16:59 | Emergency (ER) | payer SELFPAY ==
[2019-11-12 17:38] LABS: INFLUENZA A NEGATIVE (NEGATIVE); INFLUENZA B NEGATIVE (NEGATIVE); STREP A SCREEN NEGATIVE (NEGATIVE)
--- NOTE | 2019-11-12 17:48 | Emergency Department Record ---
History of Present Illness - General Chief complaint: ENT Stated complaint: SORE THROAT Time Seen by Provider: 11/12/19 17:21 Source: Patient Mode of Arrival: Ambulatory Limitations: No limitations - History of Present Illness Initial comments: pt has a sore throat. his daughter has been sick. pt recently finished a course of clindamycin for cellulitis on his forehead complaint: Sore throat Onset/Timin -: Days(s) Severity: Mild Quality: Burning Consistency: Constant Improves with: None Worsens with: Eating, Swallowing Context- Ear: Recent illness - Related Data Home Medications Medication Instructions Recorded Confirmed Last Taken Tramadol HCl/Acetaminophen 1 each PO Q6H PRN 11/12/19 11/12/19 11/10/19 [Tramadol-Acetaminophn 37.5-325] Previous Rx's Medication Instructions Recorded Azithromycin [Zithromax] 250 mg PO DAILY #4 tab 11/12/19 Allergies Allergy/AdvReac Type Severity Reaction Status Date / Time No Known Drug Allergies Allergy Verified 11/12/19 17:14 Travel Screening - Travel/Exposure Within Last 30 Days Have you traveled within the last 30 days?: No - Travel/Exposure Within Last Year Have you traveled outside the [place] in the last year?: No - Additonal Travel Details Have you been exposed to anyone with a communicable illness?: No - Travel Symptoms Symptom Screening: None Review of Systems Reviewed: No additional complaints except as noted below Constitutional: Reports: As per HPI. Denies: Chills, Fever, Malaise, Night sweats, Weakness, Weight change Eyes: Reports: As per HPI. Denies: Eye discharge, Eye pain, Photophobia, Vision change ENT: Reports: As per HPI, Throat pain. Denies: Congestion, Dental pain, Ear pain, Epistaxis, Hearing loss Respiratory: Reports: As per HPI. Denies: Cough, Dyspnea, Hemoptysis, Stridor, Wheezes Cardiovascular: Reports: As per HPI. Denies: Arrhythmia, Chest pain, Dyspnea on exertion, Edema, Murmurs, Orthopnea, Palpitations, Paroxysmal nocturnal dyspnea, Rheumatic Fever, Syncope Endocrine: Reports: As per HPI. Denies: Fatigue, Heat or cold intolerance, Polydipsia, Polyuria Gastrointestinal: Reports: As per HPI. Denies: Abdominal pain, Constipation, Diarrhea, Hematemesis, Hematochezia, Melena, Nausea, Vomiting Genitourinary: Reports: As per HPI. Denies: Dysuria, Frequency, Hematuria, In continence, Retention, Testicular pain, Testicular mass, Urgency Musculoskeletal: Reports: As per HPI. Denies: Arthralgia, Back pain, Gout, Joint swelling, Myalgia, Neck pain Skin: Reports: As per HPI. Denies: Bruising, Change in color, Change in h air/nails, Lesions, Pruritus, Rash Neurological: Reports: As per HPI. Denies: Abnormal gait, Confusion, Headache, Numbness, Paresthesias, Seizure, Tingling, Tremors, Vertigo, Weakness Psychiatric: Reports: As per HPI. Denies: Anxiety, Auditory hallucinations, Depression, Homicidal thoughts, Suicidal thoughts, Visual hallucinations Hematological/Lymphatic: Reports: As per HPI. Denies: Anemia, Blood Clots, Easy bleeding, Easy bruising, Swollen glands Past Medical History - SOCIAL HISTORY Smoking Status: Current every day smoker Alcohol Use: None Drug Use: None - RESPIRATORY Hx Respiratory Disorders: No - CARDIOVASCULAR Hx Cardio Disorders: No - NEURO Hx Neuro Disorders: No - GI Hx GI Disorders: No - Hx Genitourinary Disorders: No - ENDOCRINE Hx Endocrine Disorders: No - MUSCULOSKELETAL Hx Musculoskeletal Disorders: No - PSYCH Hx Psych Problems: No - HEMATOLOGY/ONCOLOGY Hx Hematology/Oncology Disorders: No Family Medical History Any Significant Family History?: No Hx Cancer: Grandparents Physical Exam - General General Appearance: Alert, Oriented x3, Cooperative, Mild distress - Head Head exam: Normal inspection - Eye Eye exam: Normal appearance, PERRL, EOMI Pupils: Normal accommodation - ENT ENT exam: Normal exam, Mucous membranes moist, Normal external ear exam, Normal orophraynx, TM's normal bilaterally Ear exam: Normal external inspection. negative: External canal tenderness Nasal Exam: Normal inspection. negative: Discharge, Sinus tenderness Mouth exam: Normal external inspection, Tongue normal Teeth exam: Normal inspection. negative: Dental caries Throat exam: Tonsillar erythema. negative: Tonsillar exudate - Neck Neck exam: Normal inspection, Full ROM. negative: Tenderness - Respiratory Respiratory exam: Normal lung sounds bilaterally. negative: Respiratory distress - Cardiovascular Cardiovascular Exam: Regular rate, Normal rhythm, Normal heart sounds - GI/Abdominal GI/Abdominal exam: Soft, Normal bowel sounds. negative: Tenderness - Rectal Rectal exam: Deferred - exam: Deferred - Extremities Extremities exam: Normal inspection, Full ROM, Normal capillary refill. negative: Tenderness - Back Back exam: Reports: Normal inspection, Full ROM. Denies: Muscle spasm, Rash noted, Tenderness - Neurological Neurological exam: Alert, CN II-XII intact, Normal gait, Oriented X3 - Psychiatric Psychiatric exam: Normal affect, Normal mood - Skin Skin exam: Dry, Intact, Normal color, Warm Course Vital Signs 11/12/19 17:04 Temperature 97.9 F Pulse Rate 69 Respiratory 16 Rate Blood Pressure 133/100 Pulse Ox 100 Medical Decision Making - Lab Data Result diagrams: 11/12/19 17:44 Lab Results 11/12/19 Range/Units 17:18 Influenza Type A Ag Negative (NEGATIVE) Influenza Type B Ag Negative (NEGATIVE) Group A Strep Screen Negative (NEGATIVE) Disposition Disposition: Discharge Clinical Impression: Pharyngitis Qualifiers: Pharyngitis/tonsillitis etiology: unspecified etiology Qualified Code(s): J02.9 - Acute pharyngitis, unspecified Disposition: Home, Self-Care Condition: (1) Good Instructions: Pharyngitis (ED) Additional Instructions: follow up with family doctor. return sooner if worse. motrin for pain Prescriptions: Azithromycin [Zithromax] 250 mg PO DAILY #4 tab Forms: Patient Portal Access Quality - Quality Measures Quality Measures: N/A - Blood Pressure Screening Does Patient Have Any of the Following: No Blood Pressure Classification: Hypertensive Reading Systolic Measurement: 133 Diastolic Measurement: 100 Screening for High Blood Pressure: < First Hypertensive BP, F/U Documented > [G8950] First Hypertensive Follow-up Interventions: Follow-up with rescreen GT 1 day and LT 4 weeks.
[2019-11-12 17:56] LABS: ABSOLUTE NEUTROPHIL COUNT 8.18; HEMATOCRIT 45.7 % (42.0-52.0); HEMOGLOBIN 15.4 gm/dl (14.0-18.0); MEAN CELL VOLUME 86.7 fl (81-97); MEAN CORPUSCULAR HEMOGLOBIN 29.2 pg (27-33); MEAN CORPUSCULAR HGB CONC 33.7 g/dl (32-36); MEAN PLATELET VOLUME 11.3 fl (7.4-10.4); PLATELET COUNT 230 K/uL (130-400); RED BLOOD COUNT 5.27 M/uL (4.40-5.70); RED CELL DISTRIBUTION WIDTH 13.7 % (11.5-14.5)
[2019-11-12] MEDS ORDERED: AZITHROMYCIN 500 MG TABLET PO ONE (18:30)
== END 2019-11-12 18:47 | disposition home or self-care (01) ==
LOC: ER 16:59
DX: J02.9 Acute pharyngitis, unspecified (principal); F17.210 Nicotine dependence, cigarettes, uncomplicated
CPT/HCPCS: 85027; 86308; 87400; 87880; 99283

== ENCOUNTER 2019-12-04 08:40 | Emergency (ER) | payer SELFPAY ==
[2019-12-04 09:00] LABS: STREP A SCREEN NEGATIVE (NEGATIVE)
[2019-12-04 09:09] LABS: INFLUENZA A NEGATIVE (NEGATIVE); INFLUENZA B NEGATIVE (NEGATIVE)
--- NOTE | 2019-12-04 09:38 | Emergency Department Record ---
History of Present Illness - General Chief Complaint: Cough Stated Complaint: COUGH Time Seen by Provider: 12/04/19 09:00 Source: Patient Mode of Arrival: Ambulatory Limitations: No limitations - History of Present Illness Initial Comments: pt has had a prod brown cough w blood streaking, fevers, chills, sweats, sore throat, congestion, body aches Complaint: Cough, Fever, Nasal congestion, Rhinorrhea, Sore throat Onset/Timin -: Days(s) Severity: Moderate Severity scale (1-10): 7 Consistency: Constant Context: Sick contacts Associated Symptoms: Chills, Cough, Fever, Nasal congestion - Related Data Previous Rx's Medication Instructions Recorded Azithromycin [Zithromax] 250 mg PO DAILY #6 tab 12/04/19 Allergies Allergy/AdvReac Type Severity Reaction Status Date / Time No Known Drug Allergies Allergy Verified 11/12/19 17:14 Travel Screening - Travel/Exposure Within Last 30 Days Have you traveled within the last 30 days?: No Review of Systems Reviewed: No additional complaints except as noted below Constitutional: Reports: As per HPI. Denies: Chills, Fever, Malaise, Night sweats, Weakness, Weight change Eyes: Reports: As per HPI. Denies: Eye discharge, Eye pain, Photophobia, Vision change ENT: Reports: As per HPI. Denies: Congestion, Dental pain, Ear pain, Epistaxis, Hearing loss, Throat pain Respiratory: Reports: As per HPI. Denies: Cough, Dyspnea, Hemoptysis, Stridor, Wheezes Cardiovascular: Reports: As per HPI. Denies: Arrhythmia, Chest pain, Dyspnea on exertion, Edema, Murmurs, Orthopnea, Palpitations, Paroxysmal nocturnal dyspnea, Rheumatic Fever, Syncope Endocrine: Reports: As per HPI. Denies: Fatigue, Heat or cold intolerance, Polydipsia, Polyuria Gastrointestinal: Reports: As per HPI. Denies: Abdominal pain, Constipation, Diarrhea, Hematemesis, Hematochezia, Melena, Nausea, Vomiting Genitourinary: Reports: As per HPI. Denies: Dysuria, Frequency, Hematuria, Incontinence, Retention, Testicular pain, Testicular mass, Urgency Musculoskeletal: Reports: As per HPI. Denies: Arthralgia, Back pain, Gout, Joint swelling, Myalgia, Neck pain Skin: Reports: As per HPI. Denies: Bruising, Change in color, Change in hair/nails, Lesions, Pruritus, Rash Neurological: Reports: As per HPI. Denies: Abnormal gait, Confusion, Headache, Numbness, Paresthesias, Seizure, Tingling, Tremors, Vertigo, Weakness Psychiatric: Reports: As per HPI. Denies: Anxiety, Auditory hallucinations, Depression, Homicidal thoughts, Suicidal thoughts, Visual hallucinations Hematological/Lymphatic: Reports: As per HPI. Denies: Anemia, Blood Clots, Easy bleeding, Easy bruising, Swollen glands Past Medical History - SOCIAL HISTORY Smoking Status: Current every day smoker - RESPIRATORY Hx Respiratory Disorders: No - CARDIOVASCULAR Hx Cardio Disorders: No - NEURO Hx Neuro Disorders: No - GI Hx GI Disorders: No - Hx Genitourinary Disorders: No - ENDOCRINE Hx Endocrine Disorders: No - MUSCULOSKELETAL Hx Musculoskeletal Disorders: No - PSYCH Hx Psych Problems: No - HEMATOLOGY/ONCOLOGY Hx Hematology/Oncology Disorders: No Family Medical History Any Significant Family History?: Yes Hx Cancer: Grandparents Physical Exam - General General Appearance: Alert, Oriented x3, Cooperative, Mild distress - Head Head exam: Normal inspection - Eye Eye exam: Normal appearance, PERRL, EOMI Pupils: Normal accommodation - ENT ENT exam: Normal exam, Mucous membranes moist, Normal external ear exam, Normal orophraynx Ear exam: Normal external inspection. negative: External canal tenderness Nasal Exam: Normal inspection. negative: Discharge, Sinus tenderness Mouth exam: Normal external inspection, Tongue normal Teeth exam: Normal inspection. negative: Dental caries Throat exam: Tonsillar erythema. negative: Tonsillar exudate - Neck Neck exam: Normal inspection, Full ROM. negative: Tenderness - Respiratory Respiratory exam: Normal lung sounds bilaterally. negative: Respiratory distress - Cardiovascular Cardiovascular Exam: Regular rate, Normal rhythm, Normal heart sounds - GI/Abdominal GI/Abdominal exam: Soft, Normal bowel sounds. negative: Tenderness - Rectal Rectal exam: Deferred - exam: Deferred - Extremities Extremities exam: Normal inspection, Full ROM, Normal capillary refill. negative: Tenderness - Back Back exam: Reports: Normal inspection, Full ROM. Denies: Muscle spasm, Rash noted, Tenderness - Neurological Neurological exam: Alert, Normal gait, Oriented X3, Reflexes normal - Psychiatric Psychiatric exam: Normal affect, Normal mood - Skin Skin exam: Dry, Intact, Normal color, Warm Course Vital Signs 12/04/19 08:42 Temperature 100.1 F H Pulse Rate 95 H Respiratory 20 Rate Blood Pressure 139/75 Pulse Ox 99 Medical Decision Making - Lab Data Lab Results 12/04/19 Range/Units 08:45 Influenza Type A Ag Negative (NEGATIVE) Influenza Type B Ag Negative (NEGATIVE) Group A Strep Screen Negative (NEGATIVE) Disposition Disposition: Discharge Clinical Impression: Bronchitis Pharyngitis Qualifiers: Pharyngitis/tonsillitis etiology: unspecified etiology Qualified Code(s): J02.9 - Acute pharyngitis, unspecified Disposition: Home, Self-Care Condition: (1) Good Instructions: Acute Bronchitis (ED), Pharyngitis (ED) Additional Instructions: follow up with family doctor. return sooner if worse. push fluids Prescriptions: Azithromycin [Zithromax] 250 mg PO DAILY #6 tab Forms: Patient Portal Access, Return to Work/School Quality - Quality Measures Quality Measures: N/A - Blood Pressure Screening Does Patient Have Any of the Following: No Blood Pressure Classification: Pre-Hypertensive BP Reading Systolic Measurement: 139 Diastolic Measurement: 75 Screening for High Blood Pressure: < Pre-Hypertensive BP, F/U Documented > [G8950] Pre-Hypertensive Follow-up Interventions: Follow-up with rescreen every year.
--- NOTE | 2019-12-04 09:59 | RADIOLOGY REPORT ---
EXAMINATION: Two View Chest Radiographs EXAM DATE: 12/04/2019 9:26 AM TECHNIQUE: Frontal and lateral views INDICATION: cough COMPARISON: Two-view chest x-ray 02/22/2019 ENCOUNTER: Not applicable FINDINGS: The heart, mediastinum, and pulmonary vasculature are normal. No lung consolidation or pleural effu sions are present. 14 x 5 mm radiodensity over the left upper lung most likely obscured by monitoring leads on the comparison examination and likely relates to prior granulomatous insult. IMPRESSION: No acute process. Probable granulomatous insult. Dictated by: Vitor Mendieta MD on 12/04/2019 9:54 AM. .
[2019-12-04] MEDS ORDERED: ACETAMINOPHEN 500 MG TABLET PO ONE (10:23)
== END 2019-12-04 10:32 | disposition home or self-care (01) ==
LOC: ER 08:40
DX: J20.9 Acute bronchitis, unspecified (principal); J02.9 Acute pharyngitis, unspecified; R50.81 Fever presenting with conditions classified elsewhere; F17.210 Nicotine dependence, cigarettes, uncomplicated
CPT/HCPCS: 71046; 87400; 87880; 99283